=== PATIENT | female | born 1960 | race Caucasian/White ===

== ENCOUNTER 2015-12-05 12:30 | Inpatient (IN) | payer BC ==
[~2015-12-05] VITALS: Ht 167.6 cm; Wt 105.4 kg
[2016-03-22] MEDS ORDERED: INSULIN HUMAN REGULAR 1,000 UNITS/10 ML VIAL SQ PRN (07:45)
[2016-03-22] MEDS: LACTATED RINGER'S 1000 ML IV SCH (07:45)
[2016-03-22] MEDS ORDERED: SODIUM CHLORID 0.9% 500 ML IV SCH (07:45)
[2016-03-22] MEDS ORDERED: METOPROLOL TARTRATE 25 MG TAB PO PRN (07:45)
[2016-03-22 07:51] VITALS: BP 118/87; PULSE 68; RESP 16; TEMP 98.4; O2SAT 96
[2016-03-22] MEDS ORDERED: CHLORHEXIDINE GLUCONATE 4% SOLN 120 ML BTL TOP SCH (08:00)
[2016-03-22] MEDS ORDERED: VANCOMYCIN 1000 MG/NS 250 ML (for <70 kg) IV SCH ×2 (08:00)
[2016-03-22] MEDS ORDERED: ceFAZolin 2 GM PREMIX 50 ML IV SCH (08:00)
[2016-03-22] MEDS ORDERED: AMLO10TA2 PO (08:01)
[2016-03-22] MEDS ORDERED: PANT40TA3 PO (08:01)
[2016-03-22] MEDS ORDERED: ALBUAER3 INH (08:01)
[2016-03-22] MEDS ORDERED: MULT1TAB84 PO (08:01)
[2016-03-22] MEDS ORDERED: HYDR25TA5 PO (08:01)
[2016-03-22] MEDS ORDERED: MOBI15TA PO (08:01)
[2016-03-22] MEDS ORDERED: IPRASOL INH (08:01)
[2016-03-22] MEDS ORDERED: GENTAMICIN SULFATE 80 MG/2 ML VIAL ONE ×2 (08:17→09:29)
[2016-03-22] MEDS ORDERED: METO25TA3 PO (08:27)
[2016-03-22] MEDS ORDERED: RESP: ALBUTEROL 2.5 MG/3 ML NEB (PRN) ONE (08:54)
[2016-03-22] MEDS ORDERED: ACETAMINOPHEN 1000 MG/100 ML VIAL IV ONE (09:11)
[2016-03-22] MEDS ORDERED: FAMOTIDINE 20 MG/2 ML VIAL ONE (09:11)
[2016-03-22] MEDS ORDERED: MIDAZOLAM HCL 2 MG/2 ML VIAL ONE (09:26)
[2016-03-22] MEDS ORDERED: DEXAMETHASONE SOD PHOS 4 MG/ML VIAL ONE (09:26)
[2016-03-22] MEDS ORDERED: ALBUTEROL SULFATE 90 MCG/ACT HFA 8 GM INHALER INH PRN (11:30)
[2016-03-22] MEDS ORDERED: RESP: ALBUTEROL 2.5 MG/IPRATROPIUM 0.5 MG NEB (PRN) INH (11:30)
[2016-03-22] MEDS ORDERED: DO NOT ADM ANY ANTICOAGULANT DRUGS XX PRN (11:35)
[2016-03-22] MEDS ORDERED: ROLLER WALKER1 MI1 (11:36)
[2016-03-22] MEDS: LACTATED RINGER'S 1000 ML INJ 1,000 ML IV SCH (11:37)
[2016-03-22] MEDS ORDERED: BEDSIDE COMMODE1 MI1 (11:37)
--- NOTE | 2016-03-22 11:38 | HHI.FF ---
Face to Face Verification Diagnosis: (1) Osteoarthritis of right hip Physical Therapy Gait training, Transfer training, bed to chair Hip: Total hip, Protocol: Right, Posterior hip precautions Right LE Weight Bearing: WB as tolerated Left LE Weight Bearing: WB as tolerated Nursing RN Days per Week: 3 x Week(s): 2 Nursing: Dressing changes (clean incision with alcohol and apply dry, sterile dressing ) Additional Instructions Pt/INR q Saturday and , call/text results to Radha MONTANEZ [phone] Goal INR 1.5-1.8 I have seen patient Ragini Shannon on 03/22/16. My clinical findings support the need for the requested home health care services because: Limited ability to care for self High risk of falls I certify that my clinical findings support that this patient is homebound because: Post-op weakness Unsteady gait/balance Radha Driscoll Mar 22, 2016 11:38
[2016-03-22] MEDS ORDERED: fentaNYL CITRATE 250 MCG/5 ML AMP ONE (11:39)
[2016-03-22] MEDS ORDERED: MORPHINE SULFATE 4 MG/ML INJ ONE (11:40)
--- NOTE | 2016-03-22 11:40 | HHI.PR ---
Immediate Post Op Note Procedure Date: Mar 22, 2016 Pre Op Diagnosis: R Hip OA Post Op Diagnosis: Same Surgeon: Rosalio Rouse MD Baling Machine Tender(s): Radha Driscoll PA-C Procedure: R THR Complications: None Specimen(s) removed: None Estimated blood loss: 500 cc Anesthesia: General Drains: None Patient to: PACU Patient Condition: Good Implant/Devices: SEE IMPLANT LOG (if applicable) Date/Time of Procedure: SEE SURGICAL CARE RECORD Rosalio Rouse MD Mar 22, 2016 11:40
[2016-03-22] MEDS ORDERED: *morphine SULFATE 8 MG/ML PERIprocedure ONLY ONE ×3 (11:45→12:23)
[2016-03-22] MEDS ORDERED: SODIUM CHLORIDE 0.9% FLUSH 5 ML FLUSH IVF PRN (11:45)
[2016-03-22] MEDS ORDERED: ONDANSETRON HCL 4 MG/2 ML VIAL IVP PRN (11:45)
[2016-03-22] MEDS ORDERED: ZOLPIDEM TARTRATE 5 MG TAB PO PRN (11:45)
[2016-03-22] MEDS ORDERED: Post-op Orders (for Pharmacy) MISC XX ONE (11:45)
[2016-03-22] MEDS ORDERED: *MEPERIDINE 25 MG INJ VIAL PERIprocedural Use ONLY ONE (11:45)
[2016-03-22] MEDS ORDERED: ACETAMINOPHEN/HYDROcodone 325 MG/7.5 MG TAB PO PRN (11:45)
[2016-03-22] MEDS ORDERED: ALUMINUM/MAGNESIUM/SIMETH 30 ML CUP PO PRN (11:45)
[2016-03-22] MEDS ORDERED: NALOXONE HCL 0.4 MG/ML AMP IV PRN (11:45)
[2016-03-22] MEDS ORDERED: KETOROLAC TROMETHAMINE 60 MG/2 ML (IM) VIAL IM ONE (12:00)
[2016-03-22] MEDS ORDERED: LACTATED RINGER'S 1000 ML INJ 1,000 ML IV ONE (12:00)
[2016-03-22] MEDS ORDERED: PROPOFOL 200 MG/20 ML AMP IV ONE (12:00)
[2016-03-22] MEDS ORDERED: ONDANSETRON HCL 4 MG/2 ML VIAL IV PUSH ONE (12:00)
[2016-03-22] MEDS ORDERED: NEOSTIGMINE 3 MG/3 ML SYR IV ONE (12:00)
[2016-03-22] MEDS: MORPHINE SULFATE 30 MG/30 ML PCA IV SCH (12:36)
[2016-03-22] MEDS ORDERED: *HYDROmorphone PF 1 MG VIAL PERIprocedural Use ONLY ONE (12:41)
--- NOTE | 2016-03-22 13:13 | RADRPT ---
EXAM DATE/TIME: 03/22/2016 11:49 [place] COMPARISON: No previous studies available for comparison. INDICATIONS : Post op right hip surgery. MEDICAL HISTORY : None. SURGICAL HISTORY : None. ENCOUNTER: Initial ACUITY: 1 day PAIN SCORE: 8/10 LOCATION: Right hip and pelvis FINDINGS: Patient is status post placement of a right hip prosthesis. There is good position and alignment of t he prosthesis and bony structures. The bony structures are grossly intact. Postsurgical changes are p resent. CONCLUSION: Good position and alignment on this postoperative examination. Fox Arechiga MD on March 22, 2016 at 13:11 Board Certified Radiologist. This report was verified electronically.
[2016-03-22] MEDS: PCA - TOTAL MG MORPHINE DELIVERED PER SHIFT SCH ×2 (14:00→22:00)
[2016-03-22 15:08] VITALS: BP 111/65; PULSE 66; RESP 17; TEMP 96.3; O2SAT 94
[2016-03-22 15:53] VITALS: O2SAT 96
--- NOTE | 2016-03-22 16:59 | PD.CONS ---
HPI Service [facility] Hospitalists Consult Requested By Ortho Reason for Consult Medical management Primary Care Physician Red Schulz MD Diagnoses: History of Present Illness 55 years old female with history of Crohn's disease status post bowel resection in the early 80s, hypertension, COPD, GERD, actively smoker admitted for right total hip arthroplasty by ortho service, hospitalist were asked to see the patient regarding medical management, patient currently denied any chest pain or short of breath, blurry vision abdominal pain diarrhea or constipation, she stated her hip pain is tolerable around 3 out of 10. Patient reported she doesn't follow up with the GI regarding her Crohn disease and she is not on medication, she stated her symptoms flareup on and off but it' s stable at this point. No dysuria urgency frequency, Review of Systems Other All 10 systems reviewed and was positive for what is mentioned in history of present illness otherwise negative Past Family Social History Allergies: Coded Allergies: No Known Allergies (Unverified , 03/22/16) Past Medical History Hypertension COPD GERD History of Crohn disease Past Surgical History Status post ulnar resection due to Crohn's disease and abdominal abscess Family History History of leukemia in her father Social History Actively smoker 1 pack per day for many years, Rarely drinks alcohol and no illicit drug abuse Physical Exam Vital Signs Vital Signs Date Time Temp Pulse Resp B/P Pulse Ox O2 Delivery O2 Flow Rate FiO2 03/22/16 15:53 96 Nasal Cannula 2.00 03/22/16 15:08 96.3 66 17 111/65 94 03/22/16 13:20 56 16 113/70 93 Nasal Cannula 2 03/22/16 13:15 98.0 56 16 111/78 94 Nasal Cannula 2 03/22/16 13:00 56 16 111/78 94 Nasal Cannula 2 03/22/16 12:45 56 16 113/70 93 Nasal Cannula 2 03/22/16 12:36 16 03/22/16 12:30 59 16 103/69 93 Nasal Cannula 2 03/22/16 12:15 64 16 119/76 95 Nasal Cannula 2 03/22/16 12:00 74 16 130/87 94 Nasal Cannula 2 03/22/16 11:45 71 16 138/72 92 Nasal Cannula 2 03/22/16 11:35 98.0 83 16 171/73 92 Nasal Cannula 2 03/22/16 07:51 98.4 68 16 118/87 96 Physical Exam GENERAL: This is a well-nourished, well-developed patient, in no apparent distress. SKIN: No rashes, warm and dry HEAD: Atraumatic. Normocephalic. EYES: Pupils equal round and reactive. Extraocular motions intact. No scleral icterus. ENT: Nose without bleeding, or drainage, Airway patent. NECK: Trachea midline. Supple CARDIOVASCULAR: Regular rate and rhythm without murmurs, gallops, or rubs. RESPIRATORY: Fair air entry bilaterally. No wheezes, rales, or rhonchi. GASTROINTESTINAL: Abdomen soft, non-tender, nondistended. Positive bowel sounds , longitudinal scar on the abdomen from previous bowel resection MUSCULOSKELETAL: Extremities without clubbing, cyanosis, or edema. Pedal pulses appreciated NEUROLOGICAL: Awake and alert. Moves all extremity. Normal speech.no focal neurological deficit Laboratory Laboratory Tests Test 03/22/16 03/22/16 09:50 10:21 Blood Type O POSITIVE O POSITIVE Crossmatch Leukocyte-Reduced Leukocyte-Reduced Red Blood Red Blood Cells Cells Blood Bank Comment Antibody Screen NEGATIVE Assessment and Plan Assessment and Plan 55 years old female with history of Crohn's disease hypertension admitted for Os arthritis status post Right total hip arthroplasty History of Crohn's disease doesn't seem to be in exacerbation Hypertension COPD GERD DVT prophylaxis Recommendation: Postop PT OT, pain management, DVT prophylaxis per ortho patient started on warfarin Agree with continuing HCTZ and amlodipine and metoprolol for hypertension, we' ll add Vasotec when necessary We'll provide O2 and DuoNeb scheduled and as needed Check BMP CBC in a.m. DVT prophylaxis on Coumadin Stool softener Thank you for this consultation we'll follow patient along with you Discussed Condition With Patient Oziel Rivera MD Mar 22, 2016 16:59
[2016-03-22] MEDS ORDERED: RESP: ALBUTEROL 2.5 MG/IPRATROPIUM 0.5 MG NEB (PRN) NEB (17:00)
[2016-03-22 20:35] VITALS: BP 122/82; PULSE 78; RESP 18; TEMP 96; O2SAT 94
[2016-03-22] MEDS: SODIUM CHLORIDE 0.9% FLUSH 5 ML FLUSH IVF SCH (21:00)
[2016-03-22] MEDS: RESP: ALBUTEROL 2.5 MG/IPRATROPIUM 0.5 MG NEB (SCH) NEB (21:19)
[2016-03-22 21:20] VITALS: O2SAT 96
[2016-03-23] VITALS (8 sets, daily range): BP systolic 98–139; BP diastolic 61–82; PULSE 76–90; RESP 16–20; TEMP 96.5–97.3; O2SAT 93–98
[2016-03-23] MEDS: LACTATED RINGER'S 1000 ML INJ 1,000 ML IV SCH ×2 (01:23→12:37)
[2016-03-23 04:53] LABS: INTERNATIONAL NORMALIZED RATIO 1.1 RATIO; PROTHROMBIN TIME - PATIENT 12.4 SEC (9.8-11.6)
[2016-03-23 05:10] LABS: HEMATOCRIT 34.2 % (35.0-46.0); REVIEW FLAG FINAL
[2016-03-23] MEDS: PCA - TOTAL MG MORPHINE DELIVERED PER SHIFT SCH (06:00)
[2016-03-23] MEDS: LACTATED RINGER'S 1000 ML IV SCH (07:45)
--- NOTE | 2016-03-23 07:45 | PD.ORT.PN ---
Subjective Subjective Remarks patient complains of right hip pain no complaints of SOB, chest pain Objective Vitals Vital Signs Date Time Temp Pulse Resp B/P Pulse Ox O2 Delivery O2 Flow Rate FiO2 03/23/16 04:15 96.5 76 17 118/76 97 03/23/16 00:00 97.1 87 18 139/82 97 03/22/16 21:20 96 Nasal Cannula 2.00 03/22/16 20:35 96.0 78 18 122/82 94 03/22/16 15:53 96 Nasal Cannula 2.00 03/22/16 15:08 96.3 66 17 111/65 94 03/22/16 13:20 56 16 113/70 93 Nasal Cannula 2 03/22/16 13:15 98.0 56 16 111/78 94 Nasal Cannula 2 03/22/16 13:00 56 16 111/78 94 Nasal Cannula 2 03/22/16 12:45 56 16 113/70 93 Nasal Cannula 2 03/22/16 12:36 16 03/22/16 12:30 59 16 103/69 93 Nasal Cannula 2 03/22/16 12:15 64 16 119/76 95 Nasal Cannula 2 03/22/16 12:00 74 16 130/87 94 Nasal Cannula 2 03/22/16 11:45 71 16 138/72 92 Nasal Cannula 2 03/22/16 11:35 98.0 83 16 171/73 92 Nasal Cannula 2 03/22/16 07:51 98.4 68 16 118/87 96 I/O 03/22/16 03/22/16 03/22/16 03/23/16 03/23/16 03/23/16 07:00 15:00 23:00 07:00 15:00 23:00 Intake Total 1900 ml 960 ml 1097 ml Output Total 500 ml 800 ml Balance 1400 ml 160 ml 1097 ml Intake Oral 240 ml 240 ml IV Total 200 ml 720 ml 857 ml Other 1700 ml Output Urine Total 800 ml Estimated Blood Loss 500 ml # Voids 0 # Bowel Movements 0 Result Diagram: 03/23/16 0420 Other Results Laboratory Tests Test 03/23/16 04:20 Prothrombin Time 12.4 SEC (9.8-11.6) Prothromb Time International 1.1 RATIO Ratio Objective Remarks right hip dressings dry and intact, ice in place +NVI good motor strength to lower extremity Assessment & Plan Assessment and Plan POD # 1 s/p R VON PT-WBAT low dose coumadin for dvt prop- check INR on discharge for coumadin dosage D/C CRUSHER ASSEMBLER today, [place] 7.5 mg written for plan was to discharge home tomorrow with [facility], patient may need to go saturday depending on how she does today. [id number] also written for if she needs to go to rehab instead of home orthopedically stable Radha Driscoll Mar 23, 2016 07:45
[2016-03-23] MEDS: RESP: ALBUTEROL 2.5 MG/IPRATROPIUM 0.5 MG NEB (SCH) NEB ×4 (08:00→19:28)
[2016-03-23] MEDS: MORPHINE SULFATE 30 MG/30 ML PCA IV SCH (08:17)
[2016-03-23] MEDS: SODIUM CHLORIDE 0.9% FLUSH 5 ML FLUSH IVF SCH ×3 (09:00→21:00)
[2016-03-23] MEDS ORDERED: PNEUMOCOCCAL POLYVALENT INJ 25 MCG/0.5 ML SYR IM ONE (10:00)
[2016-03-23] MEDS ORDERED: INFLUENZA VIRUS VACCINE (QUADRIVALENT) 0.5 ML SYR IM ONE (10:00)
[2016-03-23] MEDS: HYDROCHLOROTHIAZIDE 25 MG TAB PO SCH (10:55)
[2016-03-23] MEDS: PANTOPRAZOLE SOD 40 MG DELAYED RELEASE TAB PO SCH (10:55)
[2016-03-23] MEDS: METOPROLOL TARTRATE 25 MG TAB PO SCH (10:56)
[2016-03-23] MEDS: ACETAMINOPHEN/HYDROcodone 325 MG/7.5 MG TAB PO PRN ×3 (10:57→19:57)
[2016-03-23] MEDS: WARFARIN SOD 5 MG TAB PO SCH (11:12)
[2016-03-23 12:44] LABS: BICARBONATE 28.3 MEQ/L (21.0-32.0); POTASSIUM 4.2 MEQ/L (3.5-5.1)
[2016-03-23] MEDS ORDERED: WARFARIN SOD 5 MG TAB PO SCH (16:00)
--- NOTE | 2016-03-23 16:04 | HHI.PR ---
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 for Otherwise no chest pain short of breath fever or chills Objective Vitals Vital Signs Date Time Temp Pulse Resp B/P Pulse Ox O2 Delivery O2 Flow Rate FiO2 03/23/16 12:00 96.8 78 20 98/61 94 03/23/16 08:50 95 Nasal Cannula 2.00 03/23/16 08:17 16 03/23/16 08:00 97.3 78 16 104/61 98 03/23/16 04:15 96.5 76 17 118/76 97 03/23/16 00:00 97.1 87 18 139/82 97 03/22/16 21:20 96 Nasal Cannula 2.00 03/22/16 20:35 96.0 78 18 122/82 94 I/O 03/22/16 03/22/16 03/22/16 03/23/16 03/23/16 03/23/16 07:00 15:00 23:00 07:00 15:00 23:00 Intake Total 1900 ml 960 ml 1097 ml Output Total 500 ml 800 ml Balance 1400 ml 160 ml 1097 ml Intake Oral 240 ml 240 ml IV Total 200 ml 720 ml 857 ml Other 1700 ml Output Urine Total 800 ml Estimated Blood Loss 500 ml # Voids 0 # Bowel Movements 0 Result Diagram: 03/23/16 0420 03/23/16 1100 Objective Remarks GENERAL: This is a well-nourished, well-developed patient, in no apparent distress. SKIN: No rashes, warm and dry HEAD: Atraumatic. Normocephalic. EYES: Pupils equal round and reactive. Extraocular motions intact. No scleral icterus. ENT: Nose without bleeding, or drainage, Airway patent. NECK: Trachea midline. Supple CARDIOVASCULAR: Regular rate and rhythm without murmurs, gallops, or rubs. RESPIRATORY: Fair air entry bilaterally. No wheezes, rales, or rhonchi. GASTROINTESTINAL: Abdomen soft, non-tender, nondistended. Positive bowel sounds , longitudinal scar on the abdomen from previous bowel resection MUSCULOSKELETAL: Extremities without clubbing, cyanosis, or edema. Pedal pulses appreciated NEUROLOGICAL: Awake and alert. Moves all extremity. 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 History of Crohn's disease doesn't seem to be in exacerbation Hypertension COPD GERD DVT prophylaxis Recommendation: Agree with continuing [place] catheter, will try to remove it with voiding trial and bladder scan later on if not working will consider consulting neurology Postop PT OT, pain management, DVT prophylaxis per ortho patient started on warfarin : Continue HCTZ and amlodipine and metoprolol for hypertension, we'll add Vasotec when necessary O2 and DuoNeb scheduled and as needed BMP CBC reviewed within normal limits DVT prophylaxis on Coumadin Stool softener Oziel Rivera MD Mar 23, 2016 16:04
[2016-03-23] MEDS: DOCUSATE SODIUM 100 MG CAP PO SCH (19:56)
[2016-03-24] VITALS (7 sets, daily range): BP systolic 94–139; BP diastolic 64–92; PULSE 87–120; RESP 16–18; TEMP 95.9–99.3; O2SAT 92–95
[2016-03-24] MEDS: ACETAMINOPHEN/HYDROcodone 325 MG/7.5 MG TAB PO PRN ×4 (00:26→20:17)
[2016-03-24] MEDS: LACTATED RINGER'S 1000 ML INJ 1,000 ML IV SCH ×2 (01:07→10:26)
[2016-03-24 06:08] LABS: INTERNATIONAL NORMALIZED RATIO 1.2 RATIO; PROTHROMBIN TIME - PATIENT 12.8 SEC (9.8-11.6)
[2016-03-24 06:31] LABS: BICARBONATE 27.7 MEQ/L (21.0-32.0)
[2016-03-24 06:33] LABS: POTASSIUM 4.5 MEQ/L (3.5-5.1)
--- NOTE | 2016-03-24 06:57 | PD.ORT.PN ---
Subjective Subjective Remarks POD 2 s/p right VON has been out of bed with help. has not been able to ambulate to bathroom yet Objective Vitals Vital Signs Date Time Temp Pulse Resp B/P Pulse Ox O2 Delivery O2 Flow Rate FiO2 03/24/16 00:12 97.3 89 16 115/65 95 03/23/16 20:19 96.7 90 17 118/62 94 03/23/16 19:28 93 21 03/23/16 18:58 Room Air 03/23/16 16:00 97.3 83 16 106/68 94 03/23/16 12:00 96.8 78 20 98/61 94 03/23/16 08:50 95 Nasal Cannula 2.00 03/23/16 08:17 16 03/23/16 08:00 97.3 78 16 104/61 98 I/O 03/23/16 03/23/16 03/23/16 03/24/16 03/24/16 03/24/16 07:00 15:00 23:00 07:00 15:00 23:00 Intake Total 1097 ml 240 ml 480 ml 360 ml Output Total 900 ml 1000 ml 1800 ml Balance 1097 ml -660 ml -520 ml -1440 ml Intake Oral 240 ml 240 ml 480 ml 360 ml IV Total 857 ml Output Urine Total 900 ml 1000 ml 1800 ml # Voids 0 # Bowel Movements 0 0 0 0 Result Diagram: 03/23/16 0420 03/24/16 0511 Other Results Laboratory Tests Test 03/24/16 05:11 Prothrombin Time 12.8 SEC (9.8-11.6) Prothromb Time International 1.2 RATIO Ratio Objective Remarks right hip dressings dry and intact, ice in place +NVI good motor strength to lower extremity Assessment & Plan Assessment and Plan POD # 2 s/p R VON PT-WBAT low dose coumadin for dvt prop- check INR on discharge for coumadin dosage D/C LEARNING OFFICER today, [place] 7.5 mg written for patient not ready for discharge yet. will work with therapy today. if getting around and doing well with therapy, may be discharged home with [facility] later today. may need to stay til tomorrow if struggling. Peter Sandoval Mar 24, 2016 06:57
[2016-03-24 07:15] LABS: AUTOMATED NEUTROPHIL # 3.7 TH/MM3 (1.8-7.7); BASOPHIL % 0.5 % (0.0-2.0); EOSINOPHIL # 0.1 TH/MM3 (0-0.4); EOSINOPHIL % 1.4 % (0.0-4.0); HEMATOCRIT 30.3 % (35.0-46.0); HEMO FLAGS DIFF FINAL; LYMPH % 39.3 % (9.0-44.0); LYMPHOCYTE # 2.8 TH/MM3 (1.0-4.8); MEAN CELL VOLUME 89.2 FL (80.0-100.0); MEAN CORPUSCULAR HEMOGLOBIN 30.2 PG (27.0-34.0); MEAN CORPUSCULAR HGB CONC 33.8 % (32.0-36.0); MONO % 7.5 % (0.0-8.0); NEUT % 51.3 % (16.0-70.0); PLATELET COUNT 238 TH/MM3 (150-450); RED CELL DISTRIBUTION WIDTH 12.8 % (11.6-17.2); WHITE BLOOD COUNT 7.2 TH/MM3 (4.0-11.0)
[2016-03-24] MEDS: LACTATED RINGER'S 1000 ML IV SCH (07:45)
[2016-03-24] MEDS: RESP: ALBUTEROL 2.5 MG/IPRATROPIUM 0.5 MG NEB (SCH) NEB ×4 (08:14→20:07)
[2016-03-24] MEDS ORDERED: HYDR-3288 PO (08:43)
[2016-03-24] MEDS ORDERED: COUM2.5T PO (08:43)
--- NOTE | 2016-03-24 08:55 | HHI.PR ---
Subjective Remarks Laying in bed eating her breakfast London catheter removed at 6 AM today she still hasn't urinated yet Afebrile, continuing physical therapy effort per ortho Objective Vitals Vital Signs Date Time Temp Pulse Resp B/P Pulse Ox O2 Delivery O2 Flow Rate FiO2 03/24/16 08:15 94 21 03/24/16 00:12 97.3 89 16 115/65 95 03/23/16 20:19 96.7 90 17 118/62 94 03/23/16 19:28 93 21 03/23/16 18:58 Room Air 03/23/16 16:00 97.3 83 16 106/68 94 03/23/16 12:00 96.8 78 20 98/61 94 I/O 03/23/16 03/23/16 03/23/16 03/24/16 03/24/16 03/24/16 07:00 15:00 23:00 07:00 15:00 23:00 Intake Total 1097 ml 240 ml 480 ml 360 ml Output Total 900 ml 1000 ml 1800 ml Balance 1097 ml -660 ml -520 ml -1440 ml Intake Oral 240 ml 240 ml 480 ml 360 ml IV Total 857 ml Output Urine Total 900 ml 1000 ml 1800 ml # Voids 0 # Bowel Movements 0 0 0 0 Result Diagram: 03/24/16 0511 03/24/16 0511 Objective Remarks GENERAL: This is a well-nourished, well-developed patient, in no apparent distress. SKIN: No rashes, warm and dry HEAD: Atraumatic. Normocephalic. EYES: Pupils equal round and reactive. Extraocular motions intact. No scleral icterus. ENT: Nose without bleeding, or drainage, Airway patent. NECK: Trachea midline. Supple CARDIOVASCULAR: Regular rate and rhythm without murmurs, gallops, or rubs. RESPIRATORY: Fair air entry bilaterally. No wheezes, rales, or rhonchi. GASTROINTESTINAL: Abdomen soft, non-tender, nondistended. Positive bowel sounds , longitudinal scar on the abdomen from previous bowel resection MUSCULOSKELETAL: Extremities without clubbing, cyanosis, or edema. Pedal pulses appreciated NEUROLOGICAL: Awake and alert. Moves all extremity. 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
[2016-03-24] MEDS: METOPROLOL TARTRATE 25 MG TAB PO SCH (09:00)
[2016-03-24] MEDS: DOCUSATE SODIUM 100 MG CAP PO SCH ×2 (09:14→20:16)
[2016-03-24] MEDS: HYDROCHLOROTHIAZIDE 25 MG TAB PO SCH (09:15)
[2016-03-24] MEDS: PANTOPRAZOLE SOD 40 MG DELAYED RELEASE TAB PO SCH (09:15)
[2016-03-24] MEDS: SODIUM CHLORIDE 0.9% FLUSH 5 ML FLUSH IVF SCH ×2 (09:16→20:16)
[2016-03-24] MEDS: WARFARIN SOD 5 MG TAB PO SCH (10:25)
[2016-03-25] VITALS (8 sets, daily range): BP systolic 117–135; BP diastolic 64–78; PULSE 83–111; RESP 16–19; TEMP 97.3–100.7; O2SAT 94–97
[2016-03-25] MEDS: LACTATED RINGER'S 1000 ML INJ 1,000 ML IV SCH ×2 (00:57→07:16)
[2016-03-25] MEDS: ACETAMINOPHEN/HYDROcodone 325 MG/7.5 MG TAB PO PRN ×4 (03:44→20:12)
[2016-03-25 06:15] LABS: INTERNATIONAL NORMALIZED RATIO 1.2 RATIO; PROTHROMBIN TIME - PATIENT 13.4 SEC (9.8-11.6)
[2016-03-25] MEDS: LACTATED RINGER'S 1000 ML IV SCH (07:15)
--- NOTE | 2016-03-25 07:16 | PD.ORT.PN ---
Subjective Subjective Remarks Resting comfortably. States she has had difficulty with physical therapy. She has 3 stairs at home and there are concerns that she may not be safe to go home. Objective Vitals Vital Signs Date Time Temp Pulse Resp B/P Pulse Ox O2 Delivery O2 Flow Rate FiO2 03/25/16 04:33 20 03/25/16 03:42 100.7 111 18 125/77 94 03/25/16 00:20 99.6 100 19 123/64 97 03/24/16 20:35 99.3 120 18 118/69 95 03/24/16 20:08 92 21 03/24/16 20:00 Room Air 03/24/16 16:27 95.9 116 16 139/92 94 03/24/16 12:45 97.9 100 17 124/76 92 03/24/16 08:15 94 21 03/24/16 07:51 97.9 87 16 94/64 92 I/O 03/24/16 03/24/16 03/24/16 03/25/16 03/25/16 03/25/16 07:00 15:00 23:00 07:00 15:00 23:00 Intake Total 360 ml 1080 ml 1200 ml Output Total 1800 ml Balance -1440 ml 1080 ml 1200 ml Intake Oral 360 ml 1080 ml 1200 ml IV Total 0 ml Output Urine Total 1800 ml # Voids 3 5 # Bowel Movements 0 0 Result Diagram: 03/24/16 0511 03/24/16 0511 Other Results Laboratory Tests Test 03/25/16 05:33 Prothrombin Time 13.4 SEC (9.8-11.6) Prothromb Time International 1.2 RATIO Ratio Objective Remarks right hip dressings dry and intact, ice in place +NVI good motor strength to lower extremity Mild tenderness with internal/external rotation of the hip Assessment & Plan Assessment and Plan POD # 3 s/p R VON PT twice a day-WBAT low dose coumadin for dvt prop- check INR on discharge for coumadin dosage D/C ZIGZAG TUNNEL ELASTIC OPERATOR today, T[place] 7.5 mg written for Physical therapy needs to work with patient to push progression, still having difficulty and is not safe to go home then rehabilitation when bed available MAIN DOBBS PA-C Mar 25, 2016 07:16
[2016-03-25] MEDS: RESP: ALBUTEROL 2.5 MG/IPRATROPIUM 0.5 MG NEB (SCH) NEB ×4 (07:51→20:43)
[2016-03-25] MEDS: DOCUSATE SODIUM 100 MG CAP PO SCH ×2 (08:05→20:12)
[2016-03-25] MEDS: PANTOPRAZOLE SOD 40 MG DELAYED RELEASE TAB PO SCH (08:05)
[2016-03-25] MEDS: METOPROLOL TARTRATE 25 MG TAB PO SCH (08:05)
[2016-03-25] MEDS: SODIUM CHLORIDE 0.9% FLUSH 5 ML FLUSH IVF SCH (08:05)
[2016-03-25] MEDS: HYDROCHLOROTHIAZIDE 25 MG TAB PO SCH (08:05)
[2016-03-25] MEDS ORDERED: BISACODYL 10 MG SUPP PR PRN (11:00)
--- NOTE | 2016-03-25 11:00 | HHI.PR ---
Subjective Remarks Sitting on the edge of the bed eating her breakfast Stated no more urination problem she is urinating a lot She did have a fever of 100.7 this morning mostly postop She still complaining of the pain, I discussed with the nurse patient didn't have bowel movement in a few days and she is afraid of taking stool softener due to her history of Crohn's Objective Vitals Vital Signs Date Time Temp Pulse Resp B/P Pulse Ox O2 Delivery O2 Flow Rate FiO2 03/25/16 07:53 94 21 03/25/16 04:33 20 03/25/16 03:42 100.7 111 18 125/77 94 03/25/16 00:20 99.6 100 19 123/64 97 03/24/16 20:35 99.3 120 18 118/69 95 03/24/16 20:08 92 21 03/24/16 20:00 Room Air 03/24/16 16:27 95.9 116 16 139/92 94 03/24/16 12:45 97.9 100 17 124/76 92 I/O 03/24/16 03/24/16 03/24/16 03/25/16 03/25/16 03/25/16 07:00 15:00 23:00 07:00 15:00 23:00 Intake Total 360 ml 1080 ml 1200 ml Output Total 1800 ml Balance -1440 ml 1080 ml 1200 ml Intake Oral 360 ml 1080 ml 1200 ml IV Total 0 ml Output Urine Total 1800 ml # Voids 3 5 # Bowel Movements 0 0 Result Diagram: 03/24/16 0511 03/24/16 0511 Objective Remarks GENERAL: This is a well-nourished, well-developed patient, in no apparent distress. SKIN: No rashes, warm and dry HEAD: Atraumatic. Normocephalic. EYES: Pupils equal round and reactive. Extraocular motions intact. No scleral icterus. ENT: Nose without bleeding, or drainage, Airway patent. NECK: Trachea midline. Supple CARDIOVASCULAR: Regular rate and rhythm without murmurs, gallops, or rubs. RESPIRATORY: Fair air entry bilaterally. No wheezes, rales, or rhonchi. GASTROINTESTINAL: Abdomen soft, non-tender, nondistended. Positive bowel sounds , longitudinal scar on the abdomen from previous bowel resection MUSCULOSKELETAL: Extremities without clubbing, cyanosis, or edema. Pedal pulses appreciated NEUROLOGICAL: Awake and alert. Moves all extremity. 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 Fever 100.7 on 03/25/16, mostly post op, monitor History of Crohn's disease doesn't seem to be in exacerbation, on the contrary patient is constipated, refused stool softener Hypertension COPD GERD DVT prophylaxis Recommendation: INR 1.2, per ortho patient had a 3 stairs house that she is concerned about, she is not ready for discharge until cleared by ortho [place] catheter removed, voiding normally now Postop PT OT, pain management, DVT prophylaxis per ortho patient started on warfarin, Continue HCTZ and amlodipine and metoprolol for hypertension, we'll add Vasotec when necessary O2 and DuoNeb scheduled and as needed BMP CBC reviewed within normal limits DVT prophylaxis on Coumadin Stool softener Oziel Rivera MD Mar 25, 2016 11:00
[2016-03-25] MEDS: WARFARIN SOD 5 MG TAB PO SCH (11:08)
[2016-03-25] MEDS: MAGNESIUM HYDROXIDE SUSP 30 ML CUP PO PRN (14:17)
[2016-03-26] VITALS: BP 128/71; PULSE 81; RESP 17; TEMP 97.2; O2SAT 93
[2016-03-26] MEDS: ACETAMINOPHEN/HYDROcodone 325 MG/7.5 MG TAB PO PRN ×3 (05:39→18:44)
[2016-03-26] MEDS: MAGNESIUM HYDROXIDE SUSP 30 ML CUP PO PRN (05:40)
[2016-03-26 07:00] LABS: INTERNATIONAL NORMALIZED RATIO 1.2 RATIO; PROTHROMBIN TIME - PATIENT 13.4 SEC (9.8-11.6)
--- NOTE | 2016-03-26 07:43 | PD.ORT.PN ---
Subjective Subjective Remarks patient states she is ready to go to SNF today Objective Vitals Vital Signs Date Time Temp Pulse Resp B/P Pulse Ox O2 Delivery O2 Flow Rate FiO2 03/26/16 00:00 97.2 81 17 128/71 93 03/25/16 21:12 18 03/25/16 20:43 94 03/25/16 20:00 97.3 102 18 135/74 94 03/25/16 16:37 99.4 104 17 122/78 94 03/25/16 13:35 98.7 93 16 117/73 95 03/25/16 07:53 94 21 03/25/16 07:45 98.1 83 16 119/70 97 I/O 03/25/16 03/25/16 03/25/16 03/26/16 03/26/16 03/26/16 07:00 15:00 23:00 07:00 15:00 23:00 Intake Total 1200 ml 960 ml 120 ml 120 ml Balance 1200 ml 960 ml 120 ml 120 ml Intake Oral 1200 ml 960 ml 120 ml 120 ml IV Total 0 ml # Voids 5 3 2 1 # Bowel Movements 0 0 0 Result Diagram: 03/24/16 0511 03/24/16 0511 Other Results Laboratory Tests Test 03/26/16 06:10 Prothrombin Time 13.4 SEC (9.8-11.6) Prothromb Time International 1.2 RATIO Ratio Objective Remarks right hip dressings dry and intact +NVI good motor strength to lower extremity Assessment & Plan Assessment and Plan POD # 4 s/p R VON PT twice a day-WBAT low dose coumadin for dvt prop d/c to SNF today, orthopedically stable Radha Driscoll Mar 26, 2016 07:43
[2016-03-26] MEDS: LACTATED RINGER'S 1000 ML IV SCH (07:45)
[2016-03-26 08:00] VITALS: BP 128/77; PULSE 81; RESP 16; TEMP 97.2; O2SAT 94
[2016-03-26 09:09] VITALS: O2SAT 98
[2016-03-26] MEDS: SODIUM CHLORIDE 0.9% FLUSH 5 ML FLUSH IVF SCH (09:39)
[2016-03-26] MEDS: DOCUSATE SODIUM 100 MG CAP PO SCH (09:40)
[2016-03-26] MEDS: PANTOPRAZOLE SOD 40 MG DELAYED RELEASE TAB PO SCH (09:40)
[2016-03-26] MEDS: METOPROLOL TARTRATE 25 MG TAB PO SCH (09:40)
[2016-03-26] MEDS: HYDROCHLOROTHIAZIDE 25 MG TAB PO SCH (09:40)
[2016-03-26] MEDS: WARFARIN SOD 5 MG TAB PO SCH (12:39)
--- NOTE | 2016-03-26 13:05 | HHI.PR ---
Subjective Remarks She is doing well except for constipation, she just had Dulcolax suppository and waiting to see if she can move her bowel Plan to discharge today by ortho Objective Vitals Vital Signs Date Time Temp Pulse Resp B/P Pulse Ox O2 Delivery O2 Flow Rate FiO2 03/26/16 09:09 98 21 03/26/16 08:00 97.2 81 16 128/77 94 03/26/16 06:39 18 03/26/16 00:00 97.2 81 17 128/71 93 03/25/16 20:43 94 03/25/16 20:00 97.3 102 18 135/74 94 03/25/16 16:37 99.4 104 17 122/78 94 03/25/16 13:35 98.7 93 16 117/73 95 I/O 03/25/16 03/25/16 03/25/16 03/26/16 03/26/16 03/26/16 07:00 15:00 23:00 07:00 15:00 23:00 Intake Total 1200 ml 960 ml 120 ml 120 ml Balance 1200 ml 960 ml 120 ml 120 ml Intake Oral 1200 ml 960 ml 120 ml 120 ml IV Total 0 ml # Voids 5 3 2 1 # Bowel Movements 0 0 0 Result Diagram: 03/24/1651003/24/16 0511 Objective Remarks GENERAL: This is a well-nourished, well-developed patient, in no apparent distress. SKIN: No rashes, warm and dry HEAD: Atraumatic. Normocephalic. EYES: Pupils equal round and reactive. Extraocular motions intact. No scleral icterus. ENT: Nose without bleeding, or drainage, Airway patent. NECK: Trachea midline. Supple CARDIOVASCULAR: Regular rate and rhythm without murmurs, gallops, or rubs. RESPIRATORY: Fair air entry bilaterally. No wheezes, rales, or rhonchi. GASTROINTESTINAL: Abdomen soft, non-tender, nondistended. Positive bowel sounds , longitudinal scar on the abdomen from previous bowel resection MUSCULOSKELETAL: Extremities without clubbing, cyanosis, or edema. Pedal pulses appreciated NEUROLOGICAL: Awake and alert. Moves all extremity. 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 Fever 100.7 on 03/25/16, mostly post op, monitor History of Crohn's disease doesn't seem to be in exacerbation, on the contrary patient is constipated, refused stool softener Hypertension COPD GERD DVT prophylaxis Recommendation: INR 1.2, per ortho patient had a 3 stairs house that she is concerned about, to SNF when okay with ortho Urinary retention resolved completely Postop PT OT, pain management, DVT prophylaxis per ortho patient started on warfarin, Continue HCTZ and amlodipine and metoprolol for hypertension, we'll add Vasotec when necessary O2 and DuoNeb scheduled and as needed BMP CBC reviewed within normal limits DVT prophylaxis on Coumadin Stool softener for constipation Discharge Planning Medically cleared for discharge Oziel Rivera MD Mar 26, 2016 13:05
[2016-03-26] MEDS: LACTATED RINGER'S 1000 ML INJ 1,000 ML IV SCH (15:37)
--- NOTE | 2016-03-28 09:03 | MP ---
cc: CHARLOTTE CID M.D., [place] DATE OF SURGERY: March 22, 2016 PREOPERATIVE DIAGNOSIS 1. Right hip severe osteoarthritis, acetabular dysplasia. 2. Obesity. POSTOPERATIVE DIAGNOSIS 1. Right hip severe osteoarthritis, acetabular dysplasia. 2. Obesity. PROCEDURE Right total hip arthroplasty. SURGEON Mark Cid MD HAND SOLE SEWER ABHIJEET Castaneda SPECIMEN None. ESTIMATED BLOOD LOSS 500 ccs. COMPLICATIONS None. ANESTHESIA General. DRAIN None. CONDITION Stable. PLAN OF ACTIVITY Per orders. PROCEDURE My personal injury legal assistant ABHIJEET Castaneda was present for the entire surgical case. She was medically necessary for the entire case because of the complexity of the case and to facilitate the performance of the procedure. The SPRAY PAINTER HELPER at the back table was not a skill set for this case to manipulate the instruments, e.g., the multiple different types of soft tissue retractors, trial implants and permanent implants. The patient was brought in the operating room and had satisfactory general endotracheal anesthesia by the Department of Anesthesia. The patient was placed in the lateral decubitus position. All pressure points were well-padded, especially because of the patient's obesity, great care was made to protect all pressure points. The right hip, lower extremity down to including toes were all prepped and draped in usual sterile manner. Posterolateral exposure of the hip was made. All bleeders were then coagulated. Dissection continued down through subcutaneous tissue. Dissection was carried through considerable amount of adipose tissue down to the underlying fascia. The fascia nikki and gluteus bernarda was incised in line with the incision. Charnley retractor was placed into the wound. Great care was made to protect the sciatic nerve throughout the entire operative procedure. The short external rotators were removed as a group. The capsulotomy was performed. The hip was dislocated posteriorly. The patient was found to have severe osteoarthritis involving the hip with mild amount of severe acetabular dysplasia. Osteotomy was made on the femoral neck. Exposure of the acetabulum was made. The labrum was surgically excised, capsule was also excised. Using hemispherical reamers the acetabulum was checked in a manner to initially medialize the hip down to subchondral plate. Trial reduction was made with 51 mm bicentric hip Press-Fit acetabulum which in Press-Fit manner was found stable and satisfactory. Attention now brought to the femur. Using Biomet taper lock system it was sequentially broached to a number 7.5 mm femoral component. Trial reduction was made with a +3 neck, 28 mm ball, the hip was reduced. The patient was found to have satisfactory limb lengths, satisfactory stability and satisfactory range of motion. The hip itself was reduced posteriorly and all trial components were removed. The wound was irrigated with copious amounts of sterile saline antibiotic solution. A 7.5 mm standard offset stem was placed in anatomic position, approximately 15 degrees anteversion, with an excellent "fit and fill". +3 neck was assembled onto the trunnion. A ceramic femoral head was assembled and then the hip was reduced. The patient again was found to have satisfactory limb lengths, satisfactory stability and satisfactory range of motion. The hip again was irrigated with copious amounts of sterile saline antibiotic solution. The wound itself was dry. The short external rotators were repaired back to greater trochanter with drill holes using multiple #2 Tycron sutures. The fascia nikki and gluteus bernarda was repaired using #2 Tycron suture. Subcutaneous tissue was closed in multiple layers using 0-Vicryl and 2-0 Vicryl suture. Skin was approximated with running subcuticular 2-0 Nylon. Sterile dressings were applied. The patient tolerated the procedure well and arrived in the recovery room in stable and satisfactory condition. MD SEVERO Mario/TLL /11:32 AM /9:02 AM
--- NOTE | 2016-04-06 08:44 | HHI.DS ---
Discharge Summary Admission Date Mar 22, 2016 at 06:58 Discharge Date: Mar 26, 2016 Admitting Diagnosis R hip OA Diagnosis: (1) Osteoarthritis of right hip Diagnosis: Principal Procedures R total hip arthroplasty Brief History This is a 55 year old female patient who presents with the following history. Patient began to have right hip pain over one year ago. She was treated with exercises, prescription anti-inflammatories, analgesic medications and a cane. She continued to have pain involving the right hip and wanted to proceed forward with surgical intervention to improve her quality of life. Imaging x-rays of the right hip show severe osteoarthritis with joint space narrowing PE at Discharge right hip dressings dry and intact +NVI good motor strength to lower extremity Hospital Course Patient underwent satisfactory anaesthesia by the dept of anaesthesia. She underwent right total hip arthroplasty on the date of admission. She was started with low dose Coumadin the night before her procedure and will be continued to be treated with low dose Coumadin for four weeks post operatively. She was started with full weight bearing ambulation on pod #1. She was also seen and evaluated by medical during her stay. She progressed well and was discharged to a SNF on pod #4 in stable condition. Pt Condition on Discharge: Stable Discharge Disposition: Discharge to SNF Discharge Instructions Diet Instructions: Coumadin (Warfarin) Diet Activities You Can Perform: Weight Bearing as Radha Varner Apr 06, 2016 08:44
== END 2016-03-26 18:59 | DRG 470 ==
LOC: HSDI 03-22 06:58 → N06A 03-22 14:27
PROVIDERS: ADMIT Orthopaedic Surgery Orthopaedic Surgery of the Spine; ATTEND Orthopaedic Surgery Orthopaedic Surgery of the Spine
PROC: 0SR90JZ Replacement of Right Hip Joint with Synthetic Substitute, Open Approach (ICD-10-PCS; principal; 2016-03-22 09:35)
DX: M16.11 Unilateral primary osteoarthritis, right hip (principal); K50.90 Crohn's disease, unspecified, without complications; I10 Essential (primary) hypertension; J44.9 Chronic obstructive pulmonary disease, unspecified; K21.9 Gastro-esophageal reflux disease without esophagitis; Q65.89 Other specified congenital deformities of hip; E66.9 Obesity, unspecified; F17.210 Nicotine dependence, cigarettes, uncomplicated; K59.00 Constipation, unspecified
CPT/HCPCS: 73501; 80048; 85014; 85018; 85025; 85610; 86850; 86900; 86901; 86920; 90471; 90686; 94150; 94640; 94664; C1776; G0008; J0131; J0690; J1100; J1170; J1580; J1885; J2175; J2250; J2270; J2405; J2710; J3010; J3370; J7050; J7120; J7613; L1830; Q2038